=== PATIENT | male | born 1955 | race Caucasian/White ===

== ENCOUNTER 2023-01-09 16:33 | Outpatient (REF) | payer MEDICARE, SELFPAY | END 2023-01-09 16:34 | disposition home or self-care (01) | LOC: HO.CHCLDS 16:33 | PROVIDERS: Visit Provider Registered Nurse | DX: S21.202A Unspecified open wound of left back wall of thorax without penetration into thoracic cavity, initial encounter (principal); X58.XXXA Exposure to other specified factors, initial encounter; Y93.9 Activity, unspecified; Y92.9 Unspecified place or not applicable; Y99.9 Unspecified external cause status | CPT/HCPCS: 87070; 87073; 87077; 87186; 87205 ==